=== PATIENT | male | born 1995 | race Caucasian/White ===

== ENCOUNTER 2019-07-08 23:05 | Emergency (ER) | payer SELFPAY ==
[~2019-07-08] VITALS: Ht 172.7 cm; Wt 72.7 kg
[2019-07-08] MEDS ORDERED: normal saline 1000ML IV soln IVB ONE (23:20)
[2019-07-09 00:20] VITALS: BP 116/69
== END 2019-07-09 00:18 | disposition home or self-care (01) ==
LOC: ER 23:06
DX: R00.0 Tachycardia, unspecified (principal); R11.10 Vomiting, unspecified; Z88.0 Allergy status to penicillin
CPT/HCPCS: 93005; 96360; 99283; J7030